=== PATIENT | female | born 1980 | race Caucasian/White ===

== ENCOUNTER 2021-05-22 12:11 | Outpatient (CLI) | payer BC ==
[2021-05-22 23:43] LABS: SARS-CoV-2 PCR by NAA Not Detected (NotDetected)
== END 2021-05-22 12:12 | disposition home or self-care (01) ==
LOC: LABBT 12:11
PROVIDERS: ATTEND Otolaryngology Plastic Surgery within the Head & Neck
DX: Z01.812 Encounter for preprocedural laboratory examination (principal); E05.90 Thyrotoxicosis, unspecified without thyrotoxic crisis or storm; E07.89 Other specified disorders of thyroid; Z20.822 Contact with and (suspected) exposure to COVID-19
CPT/HCPCS: 85014; U0003; U0005

== ENCOUNTER 2021-05-24 10:09 | Observation (INO) | payer BC ==
[2021-05-24] MEDS ORDERED: Lidocaine 1% MPF 2 ML VIAL ONE (11:30)
[2021-05-24] MEDS ORDERED: Midazolam HCl 2 mg/2 ml Vial ONE ×2 (12:02→12:07)
[2021-05-24] MEDS ORDERED: HYDROmorphone 0.5 MG/0.5 ML SYRINGE ONE (12:07)
[2021-05-24] MEDS ORDERED: Fentanyl 100 MCG/2 ML VIAL ONE ×4 (12:07→16:47)
[2021-05-24] MEDS ORDERED: Lidocaine 1% w/Epinephrine 1:100K 20 ML VIAL ONE (12:09)
[2021-05-24] MEDS ORDERED: PROPOFOL 200 MG/20 ML VIAL ONE (12:45)
[2021-05-24] MEDS ORDERED: Ondansetron PF 4 MG/2 ML Vial ONE ×2 (12:45→16:56)
[2021-05-24] MEDS ORDERED: Dexamethasone 20 MG/5 ML VIAL ONE (12:45)
[2021-05-24] MEDS ORDERED: Succinylcholine 200 MG/10 ml SYRINGE FS ONE (12:45)
[2021-05-24] MEDS ORDERED: Lidocaine 1% PF 5 ML VIAL ONE (12:45)
[2021-05-24] MEDS ORDERED: PHENYLEPHRINE-NS 100 MCG/ML 10 ML SYRINGE ONE (12:45)
[2021-05-24] MEDS ORDERED: HYDROmorphone 2 MG/ML VIAL SLOW IVP PRN (13:13)
[2021-05-24] MEDS ORDERED: Ondansetron HCl/PF 4 MG/2 ML Vial IVP PRN (13:13)
[2021-05-24] MEDS ORDERED: Promethazine HCl 25 MG/ML VIAL IM PRN (13:13)
[2021-05-24] MEDS ORDERED: Promethazine HCl 25 MG/ML VIAL IVPB PRN (13:13)
[2021-05-24] MEDS ORDERED: Ondansetron ODT 4 MG TAB PO PRN (15:49)
[2021-05-24] MEDS ORDERED: Hydrocodone-Acetamin 15 ML UDCUP PO PRN (16:03)
[2021-05-24] MEDS ORDERED: Bacitracin 1 PK TOP PRN (16:05)
[2021-05-24 17:51] VITALS: BMI 22.7
[2021-05-24] MEDS: Ondansetron PF 4 MG/2 ML Vial IVP PRN (18:20)
[2021-05-24] MEDS: Morphine 4 MG/ML VIAL SLOW IVP PRN ×2 (20:21→23:32)
[2021-05-24] MEDS: CEFAZOLIN 1 GM in Sodium Chloride 0.9% 100 ML IVPB SCH (21:34)
[2021-05-25] MEDS ORDERED: diphenhydrAMINE 50 MG/ML VIAL IVP PRN (00:37)
[2021-05-25] MEDS ORDERED: Melatonin 3 MG TAB PO SCH ×2 (00:45)
[2021-05-25] MEDS: CEFAZOLIN 1 GM in Sodium Chloride 0.9% 100 ML IVPB SCH ×2 (05:23→13:34)
[2021-05-25] MEDS: Sodium Chloride 0.45% 1,000 ML IV SCH ×2 (05:24→13:47)
[2021-05-25] MEDS: Ondansetron PF 4 MG/2 ML Vial IVP PRN ×2 (05:33→13:44)
[2021-05-25] MEDS: Acetaminophen 325 MG TAB PO PRN ×3 (06:32→17:12)
[2021-05-25 06:41] LABS: Anion Gap 13 mmol/L (10-20); BUN (Urea Nitrogen) 7 mg/dL (7.0-18.7); Calc. Creatinine Clearance 87 mL/min (70-130); Calcium 8.6 mg/dL (7.8-10.44); Carbon Dioxide 23 mmol/L (22-29); Chloride 106 mmol/L (98-107); Glucose 97 mg/dL (70-105); Potassium 4.3 mmol/L (3.5-5.1); Sodium 138 mmol/L (136-145)
[2021-05-25] MEDS ORDERED: PSYLLIUM HUSK PO SCH (09:00)
[2021-05-25] MEDS ORDERED: Vitamin A 10,000 UNITS CAP PO SCH (09:00)
[2021-05-25] MEDS ORDERED: LACTINEX 1 TAB PO SCH (09:00)
[2021-05-25] MEDS ORDERED: Cholecalciferol 1,000 UNITS (25 MCG) TAB PO SCH (09:00)
[2021-05-25] MEDS ORDERED: Vitamin E 400 UNITS CAP PO SCH (09:00)
[2021-05-25] MEDS: Ascorbic Acid 500 mg Chewable Tablet PO SCH ×2 (10:10→10:23)
[2021-05-25] MEDS ORDERED: ALPRAZolam 0.25 MG TAB PO PRN (11:53)
[2021-05-25] MEDS ORDERED: ALPRAZolam 0.25 MG TAB PO SCH (12:00)
[2021-05-25 18:11] VITALS: BP 122/77; TEMP 99.6
== END 2021-05-25 18:49 | disposition home or self-care (01) ==
LOC: SDC 10:09 → T4-A 15:58
PROVIDERS: ADMIT Otolaryngology Plastic Surgery within the Head & Neck; ATTEND Otolaryngology Plastic Surgery within the Head & Neck
PROC: 0GTK0ZZ Resection of Thyroid Gland, Open Approach (ICD-10-PCS; principal; 2021-05-25)
PROC: 0GBJ0ZZ Excision of Thyroid Gland Isthmus, Open Approach (ICD-10-PCS; 2021-05-25)
DX: E05.00 Thyrotoxicosis with diffuse goiter without thyrotoxic crisis or storm (principal); E04.2 Nontoxic multinodular goiter; G43.909 Migraine, unspecified, not intractable, without status migrainosus; Z88.1 Allergy status to other antibiotic agents; Z88.2 Allergy status to sulfonamides; Z88.8 Allergy status to other drugs, medicaments and biological substances; Z91.018 Allergy to other foods
CPT/HCPCS: 36415; 80048; 83970; 88307; 96374; 96375; 96376; C1776; C1889; G0378; J0690; J1100; J1170; J1200; J2250; J2270; J2405; J2704; J3010; J3490; Q0162